=== PATIENT | female | born 1985 | race Hispanic/Latino ===

== ENCOUNTER 2020-07-15 15:19 | Day surgery (SDC) | payer MEDICAID ==
[2020-07-15 16:06] VITALS: BMI 39.4
[2020-07-15] MEDS ORDERED: hydrALAZINE 20 MG/ML VIAL SLOW IVP PRN (16:43)
[2020-07-15] MEDS ORDERED: Lactated Ringer's 1,000 ML IV SCH (16:45)
[2020-07-15] MEDS ORDERED: Ondansetron PF 4 MG/2 ML Vial IVP SCH (17:00)
[2020-07-15 17:09] LABS: Bilirubin Neg (Negative); Blood, Urine Negative (Negative); Clarity Clear (Clear); Glucose, Urine (Dipstick) Normal (Negative); Ketone, Urine 50 mg/dL (Negative); Leukocyte Negative (Negative); Nitrite Negative (Negative); Protein, Urine (Dipstick) 15 mg/dl (Neg-Trace); Specific Gravity, Urine 1.025 (1.002-1.036)
[2020-07-15 17:25] LABS: Bacteria/HPF Rare-Few HPF (None Seen); Mucous/LPF 1+ LPF (<2+); RBC/HPF 0-3 HPF (0-3); Transitional Epithelial 0-3 HPF (None Seen); WBC/HPF 0-3 HPF (0-3)
[2020-07-15 17:32] LABS: Anion Gap 16 mmol/L (10-20); BUN (Urea Nitrogen) 7 mg/dL (7.0-18.7); Calc. Creatinine Clearance 177 mL/min (70-130); Calcium 9.6 mg/dL (7.8-10.44); Carbon Dioxide 19 mmol/L (22-29); Chloride 105 mmol/L (98-107); Glucose 93 mg/dL (70-105); Potassium 4.1 mmol/L (3.5-5.1); Sodium 136 mmol/L (136-145)
== END 2020-07-15 19:35 | disposition home or self-care (01) ==
LOC: CSHLD/OP 15:19
PROVIDERS: ATTEND Obstetrics & Gynecology
DX: O99.612 Diseases of the digestive system complicating pregnancy, second trimester (principal); K92.0 Hematemesis; O21.2 Late vomiting of pregnancy; O09.292 Supervision of pregnancy with other poor reproductive or obstetric history, second trimester; Z3A.25 25 weeks gestation of pregnancy
CPT/HCPCS: 36415; 59025; 80048; 81001; 87480; 87510; 87660; 96360; 96361; 96375; 99284; J2405; J7120

== ENCOUNTER 2020-08-11 16:50 | Day surgery (SDC) | payer SELFPAY ==
[2020-08-11 17:31] VITALS: BMI 30.4
[2020-08-11] MEDS ORDERED: hydrALAZINE 20 MG/ML VIAL SLOW IVP PRN (17:52)
[2020-08-11 18:20] LABS: Bilirubin Neg (Negative); Blood, Urine Negative (Negative); Clarity Clear (Clear); Glucose, Urine (Dipstick) 50 mg/dL (Negative); Ketone, Urine Negative (Negative); Leukocyte Negative (Negative); Nitrite Negative (Negative); Protein, Urine (Dipstick) Negative (Neg-Trace); Specific Gravity, Urine 1.015 (1.002-1.036); Urobilinogen Normal mg/dL (Less than 2); pH, Urine 6.5 (5.0-9.0)
[2020-08-11 18:43] LABS: #Eosinphils 0.3 10x3/uL (0.0-0.5); #Monocytes 0.8 10x3/uL (0.0-1.1); #Neutrophils 7.2 10x3/uL (1.5-8.4); %Basophils 0.2 % (0.0-2.0); %Eosinophils 3.3 % (0.0-6.0); %Lymphocytes 16.6 % (18.0-47.0); %Monocytes 7.5 % (0.0-10.0); %Neutrophils 71.6 % (40.0-75.0); Hemoglobin 10.6 g/dL (12.0-15.5); Mean Corpuscular HGB CONC 33.1 g/dL (32.0-36.0); Mean Corpuscular Hemoglobin 28.3 pg (27.0-33.0); Mean Corpuscular Volume 85.6 fl (81.6-98.3); Mean Platelet Volume 10.9 fl (7.4-10.4); Platelet Count 177 10x3/uL (150-450); RBC Distribution Width 13.2 % (11.5-14.5); Red Blood Cell (RBC) Count 3.74 10x6/uL (3.90-5.03); White Blood Cell (WBC) Count 10.1 10x3/uL (3.5-10.5)
[2020-08-11 18:53] LABS: ALT (SGPT) 13 U/L (8-55); AST (SGOT) 16 U/L (5-34); Albumin 3.4 g/dL (3.5-5.0); Alkaline Phosphatase 118 U/L (40-110); Anion Gap 12 mmol/L (10-20); BUN (Urea Nitrogen) 8 mg/dL (7.0-18.7); Bilirubin, Total 0.1 mg/dL (0.2-1.2); Calc. Creatinine Clearance 173 mL/min (70-130); Calcium 8.8 mg/dL (7.8-10.44); Carbon Dioxide 20 mmol/L (22-29); Chloride 105 mmol/L (98-107); Glucose 86 mg/dL (70-105); Potassium 3.9 mmol/L (3.5-5.1); Protein, Total 6.4 g/dL (6.0-8.3); Sodium 133 mmol/L (136-145)
== END 2020-08-11 19:38 | disposition home or self-care (01) ==
LOC: CSHLD/OP 16:50
PROVIDERS: ATTEND Obstetrics & Gynecology
DX: O99.891 Other specified diseases and conditions complicating pregnancy (principal); R10.9 Unspecified abdominal pain; R51.9 Headache, unspecified; M79.89 Other specified soft tissue disorders; O36.8120 Decreased fetal movements, second trimester, not applicable or unspecified; O21.2 Late vomiting of pregnancy; O32.1XX0 Maternal care for breech presentation, not applicable or unspecified; Z3A.26 26 weeks gestation of pregnancy
CPT/HCPCS: 36415; 76819; 80053; 81003; 85025; 99283

== ENCOUNTER 2022-10-05 05:44 | Day surgery (SDC) | payer BC ==
[2022-10-03 15:48] VITALS: BMI 34.2
[2022-10-03 16:51] LABS: Hemoglobin 11.8 g/dL (12.0-15.5); Mean Corpuscular HGB CONC 29.9 g/dL (32.0-36.0); Mean Corpuscular Hemoglobin 23.4 pg (27.0-33.0); Mean Corpuscular Volume 78.4 fl (81.6-98.3); Mean Platelet Volume 10.4 fl (7.4-10.4); Platelet Count 278 10x3/uL (150-450); RBC Distribution Width 16.7 % (11.5-14.5); Red Blood Cell (RBC) Count 5.04 10x6/uL (3.90-5.03); White Blood Cell (WBC) Count 7.2 10x3/uL (3.5-10.5)
[2022-10-03 17:07] LABS: BHCG - Serum Negative (NEGATIVE); Pregs Control Background? CLEAR/WHITE (CLR/WHITE); Pregs Control Bar Appear? YES (CONTROL BAR)
[2022-10-05] MEDS ORDERED: Famotidine/PF 20 mg/2ml Vial ONE (06:23)
[2022-10-05] MEDS ORDERED: Gabapentin 300 MG CAP ONE (06:23)
[2022-10-05] MEDS ORDERED: CeleCOXIB 100 MG CAP ONE (06:24)
[2022-10-05] MEDS ORDERED: Bupivacaine HCl 0.5%/Epinephrine 1:200,000/PF 30 ml Vial ONE (06:25)
[2022-10-05] MEDS ORDERED: Dexmedetomidine 200 MCG/2 ML VIAL ONE (06:33)
[2022-10-05] MEDS ORDERED: Fentanyl 250 MCG/5 ML VIAL ONE (06:43)
[2022-10-05] MEDS ORDERED: PROPOFOL 20 ML ONE (06:43)
[2022-10-05] MEDS ORDERED: Glycopyrrolate 0.2 MG/ML 5 ML SYRINGE ONE (06:44)
[2022-10-05] MEDS ORDERED: Ondansetron PF 4 MG/2 ML Vial ONE (06:44)
[2022-10-05] MEDS ORDERED: Lidocaine 1% PF 5 ML VIAL ONE (06:44)
[2022-10-05] MEDS ORDERED: Ketorolac Tromethamine 30 MG/ML VIAL ONE (06:44)
[2022-10-05] MEDS ORDERED: Midazolam HCl 2 mg/2 ml Vial ONE (06:44)
[2022-10-05] MEDS ORDERED: Rocuronium Bromide 10 MG/ML (10ML VIAL) ONE (06:44)
[2022-10-05] MEDS ORDERED: Dexamethasone 4 mg/ml Vial ONE (06:44)
[2022-10-05] MEDS ORDERED: metroNIDAZOLE 500 MG/100 ML BAG ONE (06:59)
[2022-10-05] MEDS ORDERED: CEFAZOLIN 2 GM VIAL ONE (07:50)
[2022-10-05] MEDS ORDERED: Meperidine HCl/PF 25 MG/ML VIAL ONE (09:24)
[2022-10-05] MEDS ORDERED: HYDROcodone/Acetaminophen 5/325 mg Tablet ONE (10:04)
== END 2022-10-05 11:13 | disposition home or self-care (01) ==
LOC: CSHSDC 05:44
PROVIDERS: ATTEND Obstetrics & Gynecology
PROC: 0UT94ZZ Resection of Uterus, Percutaneous Endoscopic Approach (ICD-10-PCS; principal; 2022-10-05)
PROC: 0UB74ZZ Excision of Bilateral Fallopian Tubes, Percutaneous Endoscopic Approach (ICD-10-PCS; principal; 2022-10-05)
DX: N92.1 Excessive and frequent menstruation with irregular cycle (principal); N94.6 Dysmenorrhea, unspecified; N87.0 Mild cervical dysplasia; N80.03 Adenomyosis of the uterus; N72 Inflammatory disease of cervix uteri; N80.00 Endometriosis of the uterus, unspecified; A54.85 Gonococcal peritonitis; N73.6 Female pelvic peritoneal adhesions (postinfective); Z98.890 Other specified postprocedural states
CPT/HCPCS: 84703; 85027; 86850; 86900; 86901; 88307; C9250; J1100; J1885; J2175; J2250; J2405; J2704; J3010; S0028